=== PATIENT | male | born 1955 | race African-American/Black ===

== ENCOUNTER 2017-08-02 09:30 | Day surgery (SDC) | payer MEDICAID ==
[~2017-08-02 09:30] MED LIST: BUPIVACAINE HCL 0.75% INJ/PF (7.5 MG/1 ML) 10 ML SDV OD PRN; CHONDR SU A NA/HYALUR INTRAOC KIT (SURGICARE) ONE; EPINEPHRINE INJ/PF 1 MG/1 ML AMPULE ONE; KETOROLAC TROMETHAMINE 0.45% 4 DROP/0.4 ML DROPERETTE OD PRN; LIDOCAINE 1% INJ-PF (10 MG/ML) 30 ML SDV ONE; LIDOCAINE 4% INJ/PF (40 MG/ML) 5 ML AMPUL OD PRN
[2017-08-02] MEDS: TETRACAINE HCL 0.5% OPH SOLN 0.6 ML DROPERETTE OD PRN ×4 (10:21→11:02)
[2017-08-02] MEDS: TROPICAMIDE 1% OPH SOLN 3 ML OD PRN ×3 (10:22→10:48)
[2017-08-02] MEDS: CYCLOPENTOLATE 0.2%/PHENYLEPHRINE 1% OPH SOLN 2 ML OD PRN ×3 (10:22→10:48)
[2017-08-02] MEDS: BESIFLOXACIN HCL 0.6% OPH SUSP 5 ML BOTTLE OD PRN ×4 (10:23→11:26)
[2017-08-02] MEDS ORDERED: MIDAZOLAM 2 MG/2 ML INJ ONE ×2 (10:38→10:39)
[2017-08-02] MEDS: TOBRAMYCIN SULFATE/DEXAMETH OPH OINTMENT 3.5 GM ONE ×2 (11:24→11:26)
== END 2017-08-02 12:10 | disposition home or self-care (01) ==
LOC: SC 09:30
PROVIDERS: ATTEND Ophthalmology
DX: H25.11 Age-related nuclear cataract, right eye (principal); F17.210 Nicotine dependence, cigarettes, uncomplicated; E11.9 Type 2 diabetes mellitus without complications; I10 Essential (primary) hypertension; E78.00 Pure hypercholesterolemia, unspecified; Z79.899 Other long term (current) drug therapy; Z79.82 Long term (current) use of aspirin; Z79.84 Long term (current) use of oral hypoglycemic drugs; Z86.73 Personal history of transient ischemic attack (TIA), and cerebral infarction without residual deficits
CPT/HCPCS: 66984; 82962; V2630; J2250; J3490 ×5; J0171; 142

== ENCOUNTER 2017-08-23 06:36 | Day surgery (SDC) | payer MEDICAID ==
[~2017-08-23 06:36] MED LIST changes: -BUPIVACAINE HCL 0.75% INJ/PF (7.5 MG/1 ML) 10 ML SDV OD PRN; -CHONDR SU A NA/HYALUR INTRAOC KIT (SURGICARE) ONE; -EPINEPHRINE INJ/PF 1 MG/1 ML AMPULE ONE; -KETOROLAC TROMETHAMINE 0.45% 4 DROP/0.4 ML DROPERETTE OD PRN; +KETOROLAC TROMETHAMINE 0.45% 4 DROP/0.4 ML DROPERETTE OS PRN; -LIDOCAINE 1% INJ-PF (10 MG/ML) 30 ML SDV ONE; -LIDOCAINE 4% INJ/PF (40 MG/ML) 5 ML AMPUL OD PRN
[2017-08-23] MEDS: BESIFLOXACIN HCL 0.6% OPH SUSP 5 ML BOTTLE OS PRN ×4 (06:58→07:52)
[2017-08-23] MEDS: TROPICAMIDE 1% OPH SOLN 3 ML OS PRN ×3 (06:58→07:18)
[2017-08-23] MEDS: CYCLOPENTOLATE 0.2%/PHENYLEPHRINE 1% OPH SOLN 2 ML OS PRN ×3 (06:58→07:18)
[2017-08-23] MEDS: TETRACAINE HCL 0.5% OPH SOLN 0.6 ML DROPERETTE OS PRN ×3 (06:59→07:33)
[2017-08-23] MEDS ORDERED: EPINEPHRINE INJ/PF 1 MG/1 ML AMPULE ONE (07:05)
[2017-08-23] MEDS ORDERED: LIDOCAINE 1% INJ-PF (10 MG/ML) 30 ML SDV ONE (07:06)
[2017-08-23] MEDS ORDERED: FENTANYL CITRATE INJ/PF 100 MCG/2 ML AMPUL ONE (07:13)
[2017-08-23] MEDS ORDERED: MIDAZOLAM 2 MG/2 ML INJ ONE (07:13)
[2017-08-23] MEDS: CHONDR SU A NA/HYALUR INTRAOC KIT (SURGICARE) ONE ×2 (07:43)
[2017-08-23] MEDS: TOBRAMYCIN SULFATE/DEXAMETH OPH OINTMENT 3.5 GM ONE ×2 (07:52)
== END 2017-08-23 08:32 | disposition home or self-care (01) ==
LOC: SC 06:36
PROVIDERS: ATTEND Ophthalmology
PROC: 08RK3JZ Replacement of Left Lens with Synthetic Substitute, Percutaneous Approach (ICD-10-PCS; principal; 2017-08-23 07:30)
DX: H25.12 Age-related nuclear cataract, left eye (principal); F17.200 Nicotine dependence, unspecified, uncomplicated
CPT/HCPCS: 82962; 66984; V2630; J2250; J3490 ×5; J0171; J3010; 142

== ENCOUNTER 2019-06-18 09:32 | Observation (INO) | payer MEDICAID ==
--- NOTE | 2019-06-18 10:33 | ER Document Report ---
ED Medical Screen (RME) - General Stated Complaint: NAUSEA Time Seen by Provider: 06/18/19 10:25 Primary Care Provider: EDGARDO RAE MD [Primary Care Provider] - Follow up as needed TRAVEL OUTSIDE OF THE [place] 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 Patient states his last CVA was in 2015, he did not have any focal neurological deficit at that time. Patient states he is possibly starting insulin this month the is is not metformin is not controlling his blood sugar. Denies any new medications foods or travel. Denies any fevers chills, abdominal pain, chest pain or shortness of breath. I have greeted and performed a rapid initial assessment of this patient. A comprehensive ED assessment and evaluation of the patient, analysis of test results and completion of the medical decision making process will be conducted by additional ED providers. PHYSICAL EXAMINATION: GENERAL: Well-appearing, well-nourished and in no acute distress. HEAD: Atraumatic, normocephalic. EYES: Pupils equal round extraocular movements intact, conjunctiva are normal. NECK: Normal range of motion CV: s1, s2 regular LUNGS: No respiratory distress Musculoskeletal: Normal range of motion NEUROLOGICAL: Normal speech, in wheelchair orientated to person place and time. No visual deficits appreciated. 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 Bilateral upper extremities equal SKIN: Warm, Dry, normal turgor, no rashes or lesions noted. - Related Data Allergies/Adverse Reactions: No Known Allergies Allergy (Verified 08/23/17 07:03) Past Medical History - Past Medical History Cardiac Medical History: Reports: Hx Hypertension Denies: Hx Heart Attack Pulmonary Medical History: Denies: Hx Asthma Neurological Medical History: Reports: Hx Cerebrovascular Accident - 2015,RT SIDE USES CANE. Denies: Hx Seizures Endocrine Medical History: Reports: Hx Diabetes Mellitus Type 2 GI Medical History: Denies: Hx Hepatitis, Hx Hiatal Hernia, Hx Ulcer Infectious Medical History: Denies: Hx Hepatitis Past Surgical History: Denies: Hx Open Heart Surgery, Hx Pacemaker Physical Exam - Vital signs Vitals: Temp Pulse Resp BP Pulse Ox 98.5 F 75 18 192/88 H 99 06/18/19 09:39 06/18/19 09:39 06/18/19 09:39 06/18/19 09:39 06/18/19 09:39 Course - Vital Signs Vital signs: Temp Pulse Resp BP Pulse Ox 98.5 F 75 18 192/88 H 99 06/18/19 09:39 06/18/19 09:39 06/18/19 09:39 06/18/19 09:39 06/18/19 09:39 Doctor's Discharge - Discharge Referrals: EDGARDO RAE MD [Primary Care Provider] - Follow up as needed
[2019-06-18 11:05] LABS: ABSOLUTE BASOPHILS # (AUTO) 0.1 10^3/uL (0.0-0.2); ABSOLUTE MONOCYTES (AUTO) 0.3 10^3/uL (0.1-1.4); ABSOLUTE NEUT (AUTO) 4.6 10^3/uL (1.7-8.2); BASOPHILS % (AUTO) 1.1 % (0-2); EOSINOPHILS % (AUTO) 0.3 % (0-6); HEMATOCRIT 45.2 % (37.9-51.0); HEMOGLOBIN 15.4 g/dL (13.5-17.0); LYMPHOCYTES % (AUTO) 28.8 % (13-45); MEAN CORPUSCULAR HGB CONC 34.1 g/dL (32.0-36.0); MEAN CORPUSCULAR VOLUME 88 fl (80-97); MONOCYTES % (AUTO) 4.5 % (3-13); PLATELET COUNT 209 10^3/uL (150-450); RED BLOOD COUNT 5.14 10^6/uL (4.35-5.55); RED CELL DISTRIBUTION WIDTH 13.7 % (11.5-14.0); SEGMENTED NEUTROPHILS % (AUTO) 65.3 % (42-78); TOTAL CELLS COUNTED % (AUTO) 100 %; WHITE BLOOD COUNT 7.1 10^3/uL (4.0-10.5)
--- NOTE | 2019-06-18 11:27 | RADIOLOGY REPORT (SQ) ---
EXAM DESCRIPTION: CT HEAD WITHOUT IMAGES COMPLETED DATE/TIME: 06/18/2019 11:14 am REASON FOR STUDY: R leg weakness, nausea, hx of cva, HTN COMPARISON: CT of the head without contrast from 12/25/2015. TECHNIQUE: Axial images acquired through the brain without intravenous contrast. Images reviewed wi th bone, brain and subdural windows. Images stored on PACS. All CT scanners at this facility use dose modulation, iterative reconstruction, and/or weight based d osing when appropriate to reduce radiation dose to as low as reasonably achievable (ALARA). [facility]: Dose Right [facility]: CareDose [facility]: Dose Right [facility]: Teradose 4D [facility]: Your Energy RADIATION DOSE: CT Rad equipment meets quality standard of care and radiation dose reduction techniq ues were employed. CTDIvol: 53.2 mGy. DLP: 1070 mGy-cm. LIMITATIONS: None. FINDINGS: The areas of hypoattenuation within the left basal ganglia and thalamic nucleus could repr esent the sequela of chronic infarcts. The confluent areas of hypoattenuation throughout the suprate ntorial periventricular and subcortical white matter are unchanged and could represent the sequela of chronic microvascular ischemia. There is no acute intracranial hemorrhage, vascular territorial inf arct, extra-axial fluid collection, mass effect or midline shift. The garcia-white matter differentiat ion is preserved. There is no effacement of the cerebral sulci or basal subarachnoid cisterns. The c aliber the ventricles is concordant with the degree of sulcation and unchanged from 12/25/2015. There is a chronic depressed fracture of the medial wall of the right orbit. There is no paranasal sinus air-fluid level. The calvarium is intact. IMPRESSION: Sequela of chronic ischemia without a superimposed acute intracranial abnormality. If t here is persistent concern for an acute CVA then correlation with an MRI is recommended. EVIDENCE OF ACUTE STROKE: NO. COMMENT: Quality ID # [id number]: Final reports with documentation of one or more dose reduction techniques (e.g., Automated exposure control, adjustment of the mA and/or kV according to patient size, use of iterative reconstruction technique) TECHNICAL DOCUMENTATION: JOB ID: [id number] 2010 [employer]- All Rights Reserved Reading location - IP/workstation name: [email or web address]
--- NOTE | 2019-06-18 11:29 | RADIOLOGY REPORT (SQ) ---
EXAM DESCRIPTION: CHEST SINGLE VIEW IMAGES COMPLETED DATE/TIME: 06/18/2019 11:19 am REASON FOR STUDY: weakness, nausea COMPARISON: PA and lateral views of the chest from 12/25/2015. EXAM PARAMETERS: NUMBER OF VIEWS: One view. TECHNIQUE: An AP view of the chest was obtained. RADIATION DOSE: NA LIMITATIONS: None. FINDINGS: LUNGS AND PLEURA: No consolidation, pleural effusion or pneumothorax. MEDIASTINUM AND HILAR STRUCTURES: No mediastinal or hilar contour abnormality. HEART AND VASCULAR STRUCTURES: The cardiac silhouette and pulmonary vasculature are within normal lockhart its. BONES: No acute findings. HARDWARE: None in the chest. OTHER: No other finding. IMPRESSION: Low inspiratory lung volumes without a superimposed acute cardiopulmonary process. TECHNICAL DOCUMENTATION: JOB ID: [id number] 2010 [employer]- All Rights Reserved Reading location - IP/workstation name: [email or web address]
[2019-06-18 11:32] LABS: ALBUMIN 4.7 g/dL (3.5-5.0); ALKALINE PHOSPHATASE 173 U/L (38-126); ANION GAP 7 (5-19); ASPARTATE AMINO TRANSFERASE 21 U/L (17-59); BILIRUBIN,TOTAL 0.8 mg/dL (0.2-1.3); BLOOD UREA NITROGEN 11 mg/dL (7-20); CALCIUM 9.4 mg/dL (8.4-10.2); CARBON DIOXIDE 33 mmol/L (22-30); CHLORIDE 100 mmol/L (98-107); GLUCOSE 211 mg/dL (75-110); TOTAL PROTEIN 8.4 g/dL (6.3-8.2)
[2019-06-18] MEDS ORDERED: POTASSIUM CHLORIDE 10 MEQ TABLET.ER PO ONE ×2 (11:39→17:08)
--- NOTE | 2019-06-18 11:42 | ER Document Report ---
ED Dizziness/Weakness - General Chief Complaint: General Weakness Stated Complaint: NAUSEA Time Seen by Provider: 06/18/19 10:25 Primary Care Provider: EDGARDO RAE MD [NO LOCAL MD] - Follow up as needed Mode of Arrival: Ambulatory Information source: Patient TRAVEL OUTSIDE OF THE [place] IN LAST 30 DAYS: No - HPI Notes: Patient presents complaining of generalized weakness. He states that started approximately 2 days ago while sitting outside. He noticed that he was having more "stiffness" in his right leg and that it did not appear to function properly. He states approximately 3 years ago he had a stroke which is left his right side both arm and leg with some weakness. He states he feels that the leg is now more weak than usual. He states he has some nausea but he has had no vomiting or problems with stools. No problems with urination. No cough cold or congestion. No exposures to coronavirus. Patient denies any chest pain or shortness of breath. He has no pain. His symptoms have been constant. They are worse with movement and better with rest. There is no known radiation symptoms. They are mild to moderate in intensity. - Related Data Allergies/Adverse Reactions: No Known Allergies Allergy (Verified 08/23/17 07:03) Past Medical History - General Information source: Patient - Social History Smoking Status: Current Every Day Smoker Frequency of alcohol use: Occasional Drug Abuse: None Family History: DM, Hyperlipidemia, Hypertension Patient has homicidal ideation: No - Past Medical History Cardiac Medical History: Reports: Hx Hypertension Denies: Hx Heart Attack Pulmonary Medical History: Denies: Hx Asthma Neurological Medical History: Reports: Hx Cerebrovascular Accident - 2015,RT SIDE USES CANE. Denies: Hx Seizures Endocrine Medical History: Reports: Hx Diabetes Mellitus Type 2 GI Medical History: Denies: Hx Hepatitis, Hx Hiatal Hernia, Hx Ulcer Infectious Medical History: Denies: Hx Hepatitis Past Surgical History: Denies: Hx Open Heart Surgery, Hx Pacemaker Review of Systems - Review of Systems Constitutional: Malaise, Weakness. denies: Chills, Fever Cardiovascular: denies: Chest pain, Palpitations Respiratory: denies: Cough, Short of breath -: Yes All other systems reviewed and negative Physical Exam - Vital signs Vitals: Temp Pulse Resp BP Pulse Ox 98.5 F 75 18 192/88 H 99 06/18/19 09:39 06/18/19 09:39 06/18/19 09:39 06/18/19 09:39 06/18/19 09:39 Interpretation: Hypertensive - General General appearance: Appears well, Alert - HEENT Head: Normocephalic, Atraumatic Eyes: Normal Pupils: PERRL - Respiratory Respiratory status: No respiratory distress Chest status: Nontender Breath sounds: Normal Chest palpation: Normal - Cardiovascular Rhythm: Regular Heart sounds: Normal auscultation Murmur: No - Abdominal Inspection: Normal Distension: No distension Bowel sounds: Normal Tenderness: Nontender Organomegaly: No organomegaly - Back Back: Normal, Nontender - Extremities General upper extremity: Normal inspection, Nontender, Normal color, Normal ROM, Normal temperature General lower extremity: Normal inspection, Nontender, Normal color, Normal ROM, Normal temperature, Normal weight bearing. No: Kristian's sign - Neurological Neuro grossly intact: Yes Cognition: Normal Orientation: AAOx4 Blanche Coma Scale Eye Opening: Spontaneous Blanche Coma Scale Verbal: Oriented Hope Coma Scale Motor: Obeys Commands Blanche Coma Scale Total: 15 Speech: Normal Cranial nerves: Normal Cerebellar coordination: Normal Additional motor exam normals: No: Pronator drift Sensory: Normal - Psychological Associated symptoms: Normal affect, Normal mood - Skin Skin Temperature: Warm Skin Moisture: Dry Skin Color: Normal Course - Re-evaluation Re-evalutation: 06/18/19 14:16 Patient presents stating he feels weak in general as well as nauseated and also feels that his right leg is not as strong as normal. Patient does have a new CVA based upon MRI. His potassium was also low which is been replaced here. Patient will be admitted for further evaluation and work-up. - Vital Signs Vital signs: Temp Pulse Resp BP Pulse Ox 98.5 F 75 18 178/80 H 99 06/18/19 10:25 06/18/19 09:39 06/18/19 09:39 06/18/19 11:36 06/18/19 09:39 - Laboratory Result Diagrams: 06/18/19 10:50 06/18/19 10:50 Laboratory results interpreted by me: 06/18/19 06/18/19 06/18/19 10:49 10:50 12:40 Potassium 3.0 L* Carbon Dioxide 33 H Glucose 211 H POC Glucose 189 H Alkaline Phosphatase 173 H Total Protein 8.4 H Urine Protein 100 H Urine Glucose (UA) >=500 H Urine Ketones 20 H Urine Urobilinogen 2.0 H Ur Leukocyte Esterase TRACE H - Diagnostic Test Radiology reviewed: Image reviewed, Reports reviewed - EKG Interpretation by Me EKG shows normal: Sinus rhythm Rate: Normal - 73 Rhythm: NSR [place]/QRS: No: Right axis deviation, Left axis deviation Voltage: Consistant with LVH Discharge - Discharge Clinical Impression: CVA (cerebral vascular accident) Qualifiers: CVA mechanism: embolism Precerebral and cerebral artery: posterior cerebral artery Laterality of affected vessel: right Qualified Code(s): I63.431 - Cerebral infarction due to embolism of right posterior cerebral artery Condition: Serious Disposition: ADMITTED INPATIENT Unit Admitted: IMCU Referrals: EDGARDO RAE MD [NO LOCAL MD] - Follow up as needed
--- NOTE | 2019-06-18 12:54 | EKG REPORT ---
SEVERITY:- ABNORMAL ECG - SINUS RHYTHM PROBABLE LEFT ATRIAL ABNORMALITY LEFT VENTRICULAR HYPERTROPHY : Confirmed by: Westley Padilla MD 18-Jun-2019 12:53:25
[2019-06-18 13:05] LABS: APPEARANCE,URINE SLIGHTLY-CLOUDY; BILIRUBIN,URINE NEGATIVE (NEGATIVE); COLOR,URINE YELLOW; GLUCOSE, URINE >=500 mg/dL (NEGATIVE); KETONES,URINE 20 mg/dL (NEGATIVE); LEUKOCYTE ESTERASE,URINE TRACE (NEGATIVE); NITRITE,URINE NEGATIVE (NEGATIVE); PROTEIN,URINE 100 mg/dL (NEGATIVE); URINE SPECIFIC GRAVITY 1.018
--- NOTE | 2019-06-18 13:07 | RADIOLOGY REPORT (SQ) ---
EXAM DESCRIPTION: MRI HEAD WITHOUT IMAGES COMPLETED DATE/TIME: 06/18/2019 12:51 pm REASON FOR STUDY: right sided weakness COMPARISON: MRI of the brain without contrast from 12/25/2015. TECHNIQUE: Multiplanar imaging includes non-contrasted T1, T2, FLAIR, and diffusion with ADC map seq uences. Images stored on PACS. LIMITATIONS: None. FINDINGS: There is a focus of restricted diffusion within the right inferior cerebellar peduncle. The confluent and focal areas of high T2/FLAIR signal in the left basal ganglia and throughout the stokes pratentorial periventricular and subcortical white matter have increased compared to the MRI from 12/2015 and could represent the sequela of chronic ischemia. There are punctate foci of susceptibility artifact within the white substance of the cerebellum. There is no acute intracranial hemorrhage, extra-axial fluid collection, mass, mass effect or midline shift. The garcia-white matter differentiation is preserved. There is no effacement of the cerebral sulci or basal subarachnoid cisterns. The caliber the ventricles is concordant with the degree of sul cation. The intracranial vascular flow voids are preserved. The sella turcica, craniocervical junction, and corpus callosum are normal in appearance. There is chronic partial opacification of the right mastoid air cells. IMPRESSION: 1. Acute punctate infarct within the right inferior cerebellar peduncle in the distribut ion of the posterior inferior cerebellar artery. 2. Sequela of chronic ischemia as detailed above. EVIDENCE OF ACUTE STROKE: YES. RIGHT PICA TECHNICAL DOCUMENTATION: JOB ID: [id number] 2010 [employer]- All Rights Reserved Reading location - IP/workstation name: [email or web address]
--- NOTE | 2019-06-18 13:10 | RADIOLOGY REPORT (SQ) ---
EXAM DESCRIPTION: MRA HEAD WITHOUT IMAGES COMPLETED DATE/TIME: 06/18/2019 12:51 pm REASON FOR STUDY: CVA COMPARISON: MRI of the brain without contrast from 06/18/2019. TECHNIQUE: Axial 3-D [id number] acquisition imaging performed through the brain in the area of t he upper [place] of [place]. Images reformatted using 3-D MIPS. LIMITATIONS: None. FINDINGS: SOURCE IMAGES: No abnormality. 3-D MIP: No aneurysm, occlusion or high-grade stenosis. OTHER: No other finding. IMPRESSION: No aneurysm, occlusion or high-grade stenosis of the intracranial arterial vasculature. TECHNICAL DOCUMENTATION: JOB ID: [id number] 2010 [employer]- All Rights Reserved Reading location - IP/workstation name: [email or web address]
--- NOTE | 2019-06-18 14:30 | ER Document Report ---
ED NIH Stroke Scale - NIH Stroke Scale When completed:: Before Alteplase *: 1. NIH scale should be completed with appropriate accompanying assessment tools. *: 2. The NIH should reflect what the patient is capable of doing and should not be coached by the clinician. 1a. Level of Consciousness: 0=Alert;keenly responsive -: 1=Drowsy -: 2=Obtunded -: 3=Coma/unresponsive or reflex to noxious stimuli. 1a. Responses: 0 1b. Orientation Questions: a. What month is it? -: b. How old are you? -: 0=Answers both questions correctly. -: 1=Answers one question correctly or patient is intubated or has orotracheal trauma. -: 2=Answers neither question correctly. 1b. Responses: 0 1c. Response to commands: a. Open and close eyes? -: b. [employer] and release hand? -: Credit is given despite weakness. Demonstration of task is permitted. Substitute command if hands cannot be used. -: 0=Performs both tasks correctly -: 1=Performs one task correctly -: 2=Performs neither task correctly 1c. Responses: 0 2. Gaze: Establish eye contact and instruct patient to "Follow my finger" -: 0=Normal -: 1=Partial gaze palsy. Gaze is abnormal in one or both eyes, but where forced deviation or total gaze paresis is not present. -: 2=Forced deviation or total gaze paresis. 2. Responses: 0 3. Visual [place]: Sees fingers in all four quadrants. -: 0=No visual loss. -: 1=Partial hemianopsia. -: 2=Complete hemianopsia. -: 3=Bilateral hemianopsia (including Cortical blindness) 3. Responses: 0 4. Facial Movement: Instruct patient to: -: a. Show me your teeth -: b. Raise your eyebrows -: c. Close your eyes -: d. Smile -: 0=Normal symmetrical movement -: 1=Minor paralysis (flattened nasolabial fold, asymmetry on smiling). -: 2=Partial paralysis (total or near total paralysis of lower face). -: 3=Complete paralysis of upper and lower face 4. Responses: 0 5. Motor functions (left arm): Alternate sides and extend each arm with palms down (90 degrees if sitting or 45 degrees for supine). -: 0=No drift;limb holds for full 10 seconds. -: 1=Drift; limb holds but drifts down before full 10 seconds, but does not hit bed. -: 2=Some effort against gravity; limb cannot get to or maintain position. -: 3=No effort against gravity; limb falls. -: 4=No movement. -: UN=Amputation, joint fusion, explain in comments. 5. Responses (left arm): 0 5. Motor Functions (right arm): Alternate sides and extend each arm with palms down (90 degrees if sitting or 45 degrees for supine). -: 0=No drift;limb holds for full 10 seconds. -: 1=Drift; limb holds but drifts down before full 10 seconds, but does not hit bed. -: 2=Some effort against gravity; limb cannot get to or maintain position. -: 3=No effort against gravity; limb falls. -: 4=No movement. -: UN=Amputation, joint fusion, explain in comments. 5. Responses (right arm): 0 6. Motor Functions (left leg): With patient lying supine, alternate sides and extend each leg (30 degrees always while supine). -: 0=No drift, leg holds position for full 5 seconds -: 1=Drift; leg falls before full 5 seconds but does not hit bed. -: 2=Some effort against gravity, leg falls to bed but some effort against gravity. -: 3=No effort against gravity, leg falls to bed immediately. -: 4=No movement. -: UN=Amputation, joint fusion; explain in comments. 6. Responses (left leg): 0 6. Motor Functions (right leg): With patient lying supine, alternate sides and extend each leg (30 degrees always while supine). -: 0=No drift, leg holds position for full 5 seconds -: 1=Drift; leg falls before full 5 seconds but does not hit bed. -: 2=Some effort against gravity, leg falls to bed but some effort against gravity. -: 3=No effort against gravity, leg falls to bed immediately. -: 4=No movement. -: UN=Amputation, joint fusion; explain in comments. 6. Responses (right leg): 1 7. Limb Ataxia: With eyes open instruct patient to: -: a. "Touch your finger to your nose". -: b. "Touch your heel to your garcia" -: 0=Absent -: 1=Present in one limb. -: 2=Present in two limbs. -: UN=Amputation or joint fusion; explain in comments. 7. Responses: 1 8. Sensory: Test sensation using pinprick or noxious stimuli. Test as many body parts as possible. -: 0=Normal;no sensory loss -: 1=Mile to moderate sensory loss (patient feels pin prick but is less sharp on affected side). -: 2=Severe or total sensory loss. 8. Responses: 0 9. Best Language: Instruct patient to: -: a. "Describe what you see in this picture." -: b. "Name the items in this picture." -: c. "Read these sentences." -: 0=No aphasia, normal -: 1=Mild to moderate aphasia. -: 2=Severe aphasia -: 3=Mute, global aphasia, no usable speech or auditory comprehension. 9. Responses: 0 10. Articulation, Dysarthia: Instruct patient to: -: "Read these words" or "Repeat these words" -: 0=Normal -: 1=Mild to moderate; patient may slur some words but can be understood without difficulty. -: 2=Severe; patients speech so slurred as to be unintelligible in the absence of dysphasia. -: UN=Intubated or other physical barrier, explain in comments. 10. Responses: 0 11. Extinction or inattention: 0=No abnormality -: 1= Visual, tactile, auditory, spatial, or personal inattention or extinction to bilateral simulation in one or the sensory modalities. -: 2=Profound brittany-inattention or brittany-inattention to more than one modality; does not recognize own hand. 11. Responses: 0 Total Score: 2
[2019-06-18] MEDS ORDERED: ONDANSETRON HCL INJ/PF 4 MG/2 ML SDV IV PRN (15:12)
[2019-06-18] MEDS ORDERED: ACETAMINOPHEN 325 MG TABLET PO PRN (15:12)
--- NOTE | 2019-06-18 15:31 | PDOC H&P ---
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 Patient states his symptoms started on Monday while he was drinking a beer. States that he felt nauseous. Also stated that he started to notice increased weakness in his right leg making it difficult for him to walk. Try to sleep it off but his symptoms persisted and he decided to come in today for evaluation. Denies any other weaknesses. States that he has been in physical therapy since his last stroke which was years ago but later quit. Denies any visual changes. Admits to taking his blood pressure medications today and states that he is compliant. Last saw his PCP about 3 weeks ago. Past Medical History Cardiac Medical History: Reports: Hypertension Denies: Myocardial Infarction Pulmonary Medical History: Denies: Asthma Neurological Medical History: Denies: Seizures Endocrine Medical History: Reports: Diabetes Mellitus Type 2 GI Medical History: Denies: Hepatitis, Hiatal Hernia Hematology: Denies: Anemia, Sickle Cell Disease Past Surgical History Past Surgical History: Denies: Pacemaker Social History Smoking Status: Current Every Day Smoker Frequency of Alcohol Use: Occasional Hx Recreational Drug Use: Yes Drugs: Cocaine, Marijuana Hx Prescription Drug Abuse: No - Advance Directive Resuscitation Status: Full Code Family History Family History: DM, Hyperlipidemia, Hypertension Parental Family History Reviewed: Yes Children Family History Reviewed: NA Sibling(s) Family History Reviewed.: Yes Medication/Allergy Home Medications: Amlodipine Besylate [Norvasc 5 mg Tablet] 5 mg PO BID #60 tablet 12/30/15 Atorvastatin Calcium [Lipitor 40 mg Tablet] 40 mg PO QHS #30 tablet 12/30/15 Hydralazine HCl [Apresoline 50 mg Tablet] 100 mg PO Q8 #90 tablet 12/30/15 Losartan Potassium [Cozaar 25 mg Tablet] 50 mg PO Q12 #60 tablet 12/30/15 Clonidine [Catapres-TTS 2 (0.2 mg/day) TD Patch] 1 patch TD ASDIR 07/28/17 Metformin HCl 500 mg PO BID 07/28/17 Sildenafil Citrate [Viagra] 50 mg PO ASDIR PRN 07/28/17 Allergies/Adverse Reactions: No Known Allergies Allergy (Verified 08/23/17 07:03) Review of Systems Constitutional: ABSENT: chills, fever(s), headache(s) Eyes: ABSENT: visual disturbances Ears: ABSENT: hearing changes Nose, Mouth, and Throat: ABSENT: headache(s), vertigo Cardiovascular: ABSENT: chest pain Respiratory: ABSENT: cough, dyspnea Gastrointestinal: PRESENT: nausea. ABSENT: abdominal pain, diarrhea, vomiting Genitourinary: ABSENT: difficulty urinating, dysuria Integumentary: PRESENT: diaphoresis - on monday but not today Neurological: ABSENT: confusion, convulsions, dizziness, vertigo Psychiatric: ABSENT: anxiety Endocrine: PRESENT: polyuria Hematologic/Lymphatic: ABSENT: easy bleeding Physical Exam Vital Signs: Temp Pulse Resp BP Pulse Ox 98.5 F 75 18 178/80 H 99 06/18/19 10:25 06/18/19 09:39 06/18/19 09:39 06/18/19 11:36 06/18/19 09:39 Intake & Output 06/17/19 06/18/19 06/19/19 06:59 06:59 06:59 Weight 84.5 kg General appearance: PRESENT: no acute distress, cooperative Head exam: PRESENT: normocephalic Eye exam: PRESENT: EOMI, PERRLA. ABSENT: scleral icterus Mouth exam: PRESENT: neck supple Neck exam: ABSENT: JVD Respiratory exam: PRESENT: clear to auscultation matthew, unlabored. ABSENT: tachypnea, wheezes Cardiovascular exam: PRESENT: RRR, +S1, +S2, systolic murmur. ABSENT: irregular rhythm, tachycardia GI/Abdominal exam: PRESENT: normal bowel sounds, soft. ABSENT: rebound, rigid, tenderness Extremities exam: ABSENT: pedal edema Neurological exam: PRESENT: alert, awake, oriented to person, oriented to place, oriented to time, oriented to situation, reflexes normal, CN II-XII grossly intact, motor sensory deficit - RLE 4/5 5/5 in all other extremities. ABSENT: ataxia, aphasic Psychiatric exam: ABSENT: agitated, anxious Focused psych exam: ABSENT: pressured speech Skin exam: ABSENT: jaundice Results Laboratory Results: 06/18/19 10:50 06/18/19 10:50 06/18/19 06/18/19 06/18/19 10:50 10:50 12:40 WBC 7.1 RBC 5.14 Hgb 15.4 Hct 45.2 MCV 88 MCH 30.0 MCHC 34.1 RDW 13.7 Plt Count 209 Seg Neutrophils % 65.3 Sodium 140.1 Potassium 3.0 L* Chloride 100 Carbon Dioxide 33 H Anion Gap 7 BUN 11 Creatinine 0.84 Est GFR ( Amer) > 60 Glucose 211 H Calcium 9.4 Total Bilirubin 0.8 AST 21 Alkaline Phosphatase 173 H Total Protein 8.4 H Albumin 4.7 Urine Color YELLOW Urine Appearance SLIGHTLY-CLOUDY Urine pH 6.0 Ur Specific [place] 1.018 Urine Protein 100 H Urine Glucose (UA) >=500 H Urine Ketones 20 H Urine Blood NEGATIVE Urine Nitrite NEGATIVE Ur Leukocyte Esterase TRACE H Urine WBC (Auto) 11 Urine RBC (Auto) 2 06/18/19 10:50 Troponin I < 0.012 Impressions: Brain MRI with MRA 06/18/19 00:00 IMPRESSION: No aneurysm, occlusion or high-grade stenosis of the intracranial arterial vasculature. Chest X-Ray 06/18/19 10:34 IMPRESSION: Low inspiratory lung volumes without a superimposed acute cardiopulmonary process. Head CT 06/18/19 10:34 IMPRESSION: Sequela of chronic ischemia without a superimposed acute intracranial abnormality. If there is persistent concern for an acute CVA then correlation with an MRI is recommended. EVIDENCE OF ACUTE STROKE: NO. Head MRI 06/18/19 11:39 IMPRESSION: 1. Acute punctate infarct within the right inferior cerebellar peduncle in the distribution of the posterior inferior cerebellar artery. 2. Sequela of chronic ischemia as detailed above. EVIDENCE OF ACUTE STROKE: YES. RIGHT PICA Assessment and Plan - Diagnosis (1) Acute ischemic stroke Is this a current diagnosis for this admission?: Yes Plan: Predominant symptom was nausea. Also increased weakness in his right lower extremity (initially weakened by prior CVA). Onset Monday. [facility] of 1-2 Brain MRI revealing acute punctate infarct within right inferior cerebellar peduncle. No need for permissive hypertension at this point as patient's onset was 2 days ago. Will monitor for 24 hours on telemetry. CTA shows no hemodynamic stenosis. Check carotid ultrasound and echocardiogram. Check lipid panel. Continue aspirin. Plavix for 21 days. Increase atorvastatin to 80 mg nightly. (2) Uncontrolled hypertension Is this a current diagnosis for this admission?: Yes Plan: Poorly controlled. Likely played a role in patient's stroke. Will need more optimal control. Continue amlodipine 10 mg. Add losartan 25 every 12. (3) Type 2 diabetes mellitus Is this a current diagnosis for this admission?: Yes Plan: Resume metformin. Sliding scale insulin. ADA. Check A1c. (4) Tobacco abuse Is this a current diagnosis for this admission?: Yes Plan: Receive counseling on tobacco cessation. - Time Time Spent with patient: 35 or more minutes
[2019-06-18] MEDS ORDERED: DEXTROSE 40% GEL 15 GM TUBE PO PRN ×2 (15:34)
[2019-06-18] MEDS ORDERED: GLUCAGON,HUMAN RECOMB 1 MG INJ IM PRN (15:34)
[2019-06-18] MEDS ORDERED: DEXTROSE 50%-WATER 25 GM/50 ML DISP.SYRIN IV PRN ×2 (15:34)
[2019-06-18] MEDS ORDERED: LOSARTAN POTASSIUM 25 MG TABLET PO SCH (15:45)
[2019-06-18] MEDS ORDERED: LABETALOL HCL INJ 20 MG/4 ML DISP.SYRIN IV PRN (16:18)
[2019-06-18] MEDS: INSULIN LISPRO 100 UNIT/ML 3 ML VIAL SUBCUT SCH ×2 (16:34→21:37)
[2019-06-18] MEDS: LOSARTAN POTASSIUM 25 MG TABLET PO SCH (16:36)
[2019-06-18] MEDS: METFORMIN HCL 500 MG TABLET PO SCH (16:36)
--- NOTE | 2019-06-18 18:34 | RADIOLOGY REPORT (SQ) ---
EXAM DESCRIPTION: CAROTID DOPPLER IMAGES COMPLETED DATE/TIME: 06/18/2019 6:23 pm REASON FOR STUDY: cva workup COMPARISON: Carotid Doppler 12/25/2015 CT brain 06/18/2019 MRI brain and MRA exam [facility] [place] 06/18/2019 TECHNIQUE: Grayscale ultrasound, Doppler velocity and spectra, and color Doppler images acquired of the extra-cranial carotid and vertebral arteries. Images stored on PACS. LIMITATIONS: None. FINDINGS: RIGHT CAROTID CCA Velocities: Within normal limits. ICA Velocities Peak systolic 0.5 m/s. End diastolic 0.1 m/s. Proximal ICA/CCA peak systolic ratio normal. Spectra normal. No significant plaque. LEFT CAROTID CCA Velocities: Within normal limits. ICA Velocities Peak systolic 0.47 m/s. End diastolic 0.14 m/s. Proximal ICA/CCA peak systolic ratio normal. Spectra normal. No significant plaque. VERTEBRAL ARTERIES: Antegrade flow. Normal waveforms. SUBCLAVIAN ARTERIES: Not evaluated OTHER: No other significant finding. IMPRESSION: NO HEMODYNAMICALLY SIGNIFICANT STENOSIS. COMMENT: Quality ID #[id number]: Velocity criteria are extrapolated from the diameter data as defined by t he Society of Radiologists in Ultrasound Consensus Conference. Radiology 2003: 229; 340-346. TECHNICAL DOCUMENTATION: JOB ID: [id number] 2010 [employer]- All Rights Reserved Reading location - IP/workstation name: [email or web address]
[2019-06-18] MEDS ORDERED: ATORVASTATIN CALCIUM 80 MG TABLET PO SCH (22:00)
[2019-06-18] MEDS ORDERED: INSULIN GLARGINE,HUM.REC.ANLOG 1,000 UNIT/10 ML VIAL SUBCUT SCH (22:00)
[2019-06-19] MEDS: LOSARTAN POTASSIUM 25 MG TABLET PO SCH (05:20)
[2019-06-19 06:12] LABS: HEMATOCRIT 42.3 % (37.9-51.0); HEMOGLOBIN 14.5 g/dL (13.5-17.0); MEAN CORPUSCULAR HEMOGLOBIN 30.2 pg (27.0-33.4); MEAN CORPUSCULAR HGB CONC 34.3 g/dL (32.0-36.0); MEAN CORPUSCULAR VOLUME 88 fl (80-97); PLATELET COUNT 190 10^3/uL (150-450); RED CELL DISTRIBUTION WIDTH 13.5 % (11.5-14.0)
[2019-06-19 06:24] LABS: INTERNATIONAL RATION (INR) 0.94; PROTHROMBIN TIME 12.5 SEC (11.4-15.4)
[2019-06-19 06:32] LABS: ANION GAP 7 (5-19); BLOOD UREA NITROGEN 15 mg/dL (7-20); CALCIUM 9.2 mg/dL (8.4-10.2); CARBON DIOXIDE 27 mmol/L (22-30); CHLORIDE 104 mmol/L (98-107); CHOLESTEROL 153.64 mg/dL (0-200); GLUCOSE 134 mg/dL (75-110); POTASSIUM 3.2 mmol/L (3.6-5.0); TRIGLYCERIDES 145 mg/dL (<150)
[2019-06-19 06:42] LABS: DIRECT LDL 91 mg/dL (<100)
--- NOTE | 2019-06-19 06:56 | EKG REPORT ---
SEVERITY:- ABNORMAL ECG - SINUS RHYTHM LVH WITH SECONDARY REPOLARIZATION ABNORMALITY ANTERIOR ST ELEVATION, PROBABLY DUE TO LVH : Confirmed by: Westley Padilla MD 19-Jun-2019 06:55:40
[2019-06-19] MEDS ORDERED: POTASSIUM CHLORIDE 10 MEQ TABLET.ER PO ONE ×3 (07:30→11:00)
[2019-06-19] MEDS ORDERED: ENOXAPARIN SODIUM INJ 40 MG/0.4 ML DISP.SYRIN SUBCUT SCH (10:00)
[2019-06-19] MEDS ORDERED: ASPIRIN 81 MG TABLET, ENT COATED PO SCH (10:00)
[2019-06-19] MEDS ORDERED: CLOPIDOGREL BISULFATE 75 MG TABLET PO SCH (10:00)
[2019-06-19] MEDS ORDERED: AMLODIPINE BESYLATE 10 MG TABLET PO SCH (10:00)
[2019-06-19] MEDS: METFORMIN HCL 500 MG TABLET PO SCH (10:49)
[2019-06-19] MEDS: INSULIN LISPRO 100 UNIT/ML 3 ML VIAL SUBCUT SCH (10:50)
--- NOTE | 2019-06-19 11:44 | PDOC DISCHARGE SUMMARY ---
Impression - Admit/DC Date/PCP Admission Date/Primary Care Provider: 06/18/19 14:32 EL HERNÁNDEZ Discharge Date: 06/19/19 - Discharge Diagnosis (1) Acute ischemic stroke Is this a current diagnosis for this admission?: Yes (2) Uncontrolled hypertension Is this a current diagnosis for this admission?: Yes (3) Type 2 diabetes mellitus Is this a current diagnosis for this admission?: Yes (4) Tobacco abuse Is this a current diagnosis for this admission?: Yes - Additional Information Resuscitation Status: Full Code Discharge Diet: Diabetic Referrals: EDGARDO RAE MD [NO LOCAL MD] - Prescriptions: Losartan Potassium [Cozaar 25 mg Tablet] 25 mg PO Q12 #60 tablet Atorvastatin Calcium [Lipitor 80 mg Tablet] 80 mg PO QHS #30 tablet Metformin HCl [Metformin HCl ER] 1,000 mg PO BID 30 Days Amlodipine Besylate [Norvasc 10 mg Tablet] 10 mg PO DAILY #30 Clopidogrel Bisulfate [Plavix 75 mg Tablet] 75 mg PO DAILY 20 Days #20 tablet Home Medications: Aspirin [Ecotrin 81 mg EC Tablet] 81 mg PO DAILY 06/18/19 Insulin Glargine,Hum.rec.anlog [Lantus Insulin 100 Unit/mL Insulin Pen] 20 unit SQ QHS 06/18/19 Amlodipine Besylate [Norvasc 10 mg Tablet] 10 mg PO DAILY #30 06/19/19 Atorvastatin Calcium [Lipitor 80 mg Tablet] 80 mg PO QHS #30 tablet 06/19/19 Clopidogrel Bisulfate [Plavix 75 mg Tablet] 75 mg PO DAILY 20 Days #20 tablet 06/19/19 Losartan Potassium [Cozaar 25 mg Tablet] 25 mg PO Q12 #60 tablet 06/19/19 Metformin HCl [Metformin HCl ER] 1,000 mg PO BID 30 Days 06/19/19 History of Present Illiness History of Present Illness: SISI HYMAN is a 63 year old male with a history of diabetes mellitus type 2, 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 Patient states his symptoms started on Monday while he was drinking a beer. States that he felt nauseous. Also stated that he started to notice increased weakness in his right leg making it difficult for him to walk. Try to sleep it off but his symptoms persisted and he decided to come in today for evaluation. Denies any other weaknesses. States that he has been in physical therapy since his last stroke which was years ago but later quit. Denies any visual changes. Admits to taking his blood pressure medications today and states that he is compliant. Last saw his PCP about 3 weeks ago. Hospital Course Hospital Course: Patient was admitted for evaluation of acute ischemic stroke. MRI of the brain confirmed acute stroke involving the right cerebellar peduncle. Likely responsible for patient's nausea and malaise and uncertain if may have contributed to patient's worsening right leg weakness which has been present since patient's prior stroke. Work-up was performed which included MRA of the brain which showed patent intracranial arteries, carotid Doppler which showed no evidence of hemodynamic significant stenosis, echocardiogram. Lipid panel was also performed. Hemoglobin A1c was over 9. Patient states that he has been ordered for Lantus but does not take the Lantus because he does not want to. As such I have increased his metformin dose from 500 to 1000 mg twice daily. Atorvastatin has been increased to 80 mg nightly. Patient has had poorly controlled hypertension on presentation and as such, losartan has been added to his regimen of amlodipine. Patient is to continue lifelong aspirin and Plavix for 21 days. Telemetry was reviewed and showed no evidence of atrial fibrillation since admission. Patient has remained stable and has worked well with physical therapy and will be set up for home PT and Occupational Therapy. Patient also advised on smoking cessation. Physical Exam Vital Signs: Temp Pulse Resp BP Pulse Ox 98.1 F 71 18 153/78 H 95 06/19/19 07:50 06/19/19 07:50 06/19/19 07:50 06/19/19 07:50 06/19/19 07:50 Intake & Output 06/18/19 06/19/19 06/20/19 06:59 06:59 06:59 Intake Total 510 Balance 510 Weight 84 kg General appearance: PRESENT: no acute distress, cooperative Neurological exam: PRESENT: alert, awake Results Laboratory Results: WBC 7.0 10^3/uL (4.0-10.5) 06/19/19 05:45 RBC 4.80 10^6/uL (4.35-5.55) 06/19/19 05:45 Hgb 14.5 g/dL (13.5-17.0) 06/19/19 05:45 Hct 42.3 % (37.9-51.0) 06/19/19 05:45 MCV 88 fl (80-97) 06/19/19 05:45 MCH 30.2 pg (27.0-33.4) 06/19/19 05:45 MCHC 34.3 g/dL (32.0-36.0) 06/19/19 05:45 RDW 13.5 % (11.5-14.0) 06/19/19 05:45 Plt Count 190 10^3/uL (150-450) 06/19/19 05:45 Lymph % (Auto) 28.8 % (13-45) 06/18/19 10:50 [place] % (Auto) 4.5 % (3-13) 06/18/19 10:50 Eos % (Auto) 0.3 % (0-6) 06/18/19 10:50 Baso % (Auto) 1.1 % (0-2) 06/18/19 10:50 Absolute Neuts (auto) 4.6 10^3/uL (1.7-8.2) 06/18/19 10:50 Absolute Lymphs (auto) 2.0 10^3/uL (0.5-4.7) 06/18/19 10:50 Absolute Monos (auto) 0.3 10^3/uL (0.1-1.4) 06/18/19 10:50 Absolute Eos (auto) 0.0 10^3/uL (0.0-0.6) 06/18/19 10:50 Absolute Basos (auto) 0.1 10^3/uL (0.0-0.2) 06/18/19 10:50 Seg Neutrophils % 65.3 % (42-78) 06/18/19 10:50 PT 12.5 SEC (11.4-15.4) 06/19/19 05:45 INR 0.94 06/19/19 05:45 APTT 31.0 SEC (23.5-35.8) 06/19/19 05:45 Sodium 138.2 mmol/L (137-145) 06/19/19 05:45 Potassium 3.2 mmol/L (3.6-5.0) L 06/19/19 05:45 Chloride 104 mmol/L (98-107) 06/19/19 05:45 Carbon Dioxide 27 mmol/L (22-30) 06/19/19 05:45 Anion Gap 7 (5-19) 06/19/19 05:45 BUN 15 mg/dL (7-20) 06/19/19 05:45 Creatinine 0.96 mg/dL (0.52-1.25) 06/19/19 05:45 Est GFR ( Amer) > 60 (>60) 06/19/19 05:45 Est GFR (MDRD) Non-Af > 60 (>60) 06/19/19 05:45 Glucose 134 mg/dL (75-110) H 06/19/19 05:45 POC Glucose 145 mg/dL (70-110) H 06/19/19 07:50 Hemoglobin A1c % 9.4 % (4.7-6.0) H 06/19/19 05:45 Calcium 9.2 mg/dL (8.4-10.2) 06/19/19 05:45 Total Bilirubin 0.8 mg/dL (0.2-1.3) 06/18/19 10:50 Direct Bilirubin 0.0 mg/dL (0.0-0.4) 06/18/19 10:50 Neonat Total Bilirubin Not Reportable 06/18/19 10:50 Neonat Direct Bilirubin Not Reportable 06/18/19 10:50 Neonat Indirect Bili Not Reportable 06/18/19 10:50 AST 21 U/L (17-59) 06/18/19 10:50 ALT 22 U/L (<50) 06/18/19 10:50 Alkaline Phosphatase 173 U/L (38-126) H 06/18/19 10:50 Troponin I < 0.012 ng/mL 06/18/19 10:50 Total Protein 8.4 g/dL (6.3-8.2) H 06/18/19 10:50 Albumin 4.7 g/dL (3.5-5.0) 06/18/19 10:50 Triglycerides 145 mg/dL (<150) 06/19/19 05:45 Cholesterol 153.64 mg/dL (0-200) 06/19/19 05:45 LDL Cholesterol Direct 91 mg/dL (<100) 06/19/19 05:45 VLDL Cholesterol 29.0 mg/dL (10-31) 06/19/19 05:45 HDL Cholesterol 43 mg/dL (>40) 06/19/19 05:45 Urine Color YELLOW 06/18/19 12:40 Urine Appearance SLIGHTLY-CLOUDY 06/18/19 12:40 Urine pH 6.0 (5.0-9.0) 06/18/19 12:40 Ur Specific [place] 1.018 06/18/19 12:40 Urine Protein 100 mg/dL (NEGATIVE) H 06/18/19 12:40 Urine Glucose (UA) >=500 mg/dL (NEGATIVE) H 06/18/19 12:40 Urine Ketones 20 mg/dL (NEGATIVE) H 06/18/19 12:40 Urine Blood NEGATIVE (NEGATIVE) 06/18/19 12:40 Urine Nitrite NEGATIVE (NEGATIVE) 06/18/19 12:40 Urine Bilirubin NEGATIVE (NEGATIVE) 06/18/19 12:40 Urine Urobilinogen 2.0 mg/dL (<2.0) H 06/18/19 12:40 Ur Leukocyte Esterase TRACE (NEGATIVE) H 06/18/19 12:40 Urine WBC (Auto) 11 /HPF 06/18/19 12:40 Urine RBC (Auto) 2 /HPF 06/18/19 12:40 Squamous Epi Cells Auto 3 /HPF 06/18/19 12:40 Urine Mucus (Auto) MANY /LPF 06/18/19 12:40 Urine Ascorbic Acid NEGATIVE (NEGATIVE) 06/18/19 12:40 06/18/19 10:50 Troponin I < 0.012 Impressions: Brain MRI with MRA 06/18/19 00:00 IMPRESSION: No aneurysm, occlusion or high-grade stenosis of the intracranial arterial vasculature. Carotid Doppler Study 06/18/19 00:00 IMPRESSION: NO HEMODYNAMICALLY SIGNIFICANT STENOSIS. Chest X-Ray 06/18/19 10:34 IMPRESSION: Low inspiratory lung volumes without a superimposed acute cardiopulmonary process. Head CT 06/18/19 10:34 IMPRESSION: Sequela of chronic ischemia without a superimposed acute intracranial abnormality. If there is persistent concern for an acute CVA then correlation with an MRI is recommended. EVIDENCE OF ACUTE STROKE: NO. Head MRI 06/18/19 11:39 IMPRESSION: 1. Acute punctate infarct within the right inferior cerebellar peduncle in the distribution of the posterior inferior cerebellar artery. 2. Sequela of chronic ischemia as detailed above. EVIDENCE OF ACUTE STROKE: YES. RIGHT PICA Plan Time Spent: Less than 30 Minutes Stroke Is this a Stroke Patient?: Yes Stroke Pt being discharged on Anti-thrombolytic therapy?: Yes Stroke Pt being discharged on Anti-coagulation therapy?: No Reason(s) for not prescribing Anti-coagulation therapy:: Not indicated Stroke Pt being discharged on Statins?: Yes Acute Heart Failure - Is this a Heart Failure Patient?: No
--- NOTE | 2019-06-19 11:57 | XCELERA REPORT ---
[address] [address] Transthoracic Echocardiogram Report Name: SISI HYMAN Age: 63 yrs Gender: Male : 1955 Patient Status: Inpatient Patient Location: [facility]^A Study Date: 06/18/2019 05:48 PM Height: 67 in Weight: 186 lb BSA: 2.0 m2 Reason For Study: cva work up Ordering Physician: ROBBY GONZALES Performed By: Jennifer Novak Interpretation Summary LEFT VENTRICLE: LV Systolic function: LVEF is felt to be within normal limits. Best estimate is approximately LVEF is 60 to 65%. LV Diastolic Function: Grade II diastolic dysfunction noted. Wall motion : No definite regional wall motion abnormalities are noted. Left ventricular chamber size : is within normal limit. Left ventricular wall thickness : is increased indicative of moderate LVH. RIGHT VENTRICLE: RV systolic function : is felt to be within normal limit. Right Ventricle Size : is within normal limits. LEFT ATRIUM size : is mildly dilated. RIGHT ATRIUM size : is within normal limit. INTER ATRIAL SEPTUM : No definite atrial septal defect noted however a small PFO could be missed. AORTIC ROOT : seems to be within normal limits. Ascending aorta is not well visualized. INFERIOR VENA CAVA: was not well visualized. VALVES: MITRAL VALVE : Leaflets are mildly thickened. Mobility seems to be within normal limits. Mitral Regurgitation : Trace mitral regurgitation is noted. Mitral Stenosis: No mitral stenosis noted. Mitral valve prolapse : none noted. AORTIC VALVE: seems to be trileaflet with mild thickening but adequate excursion. Aortic stenosis : No aortic stenosis noted. Aortic regurgitation : No aortic incompetence noted. TRICUSPID VALVE : mobility and structures within normal limit. Tricuspid stenosis : no tricuspid stenosis noted. Tricuspid regurgitation : Trace tricuspid regurgitation noted. Estimated RVSP : cannot be accurately commented upon but possibly at upper limit of normal. PULMONARY VALVE : was not well visualized but no significant abnormalities suspected. Pulmonary stenosis : no pulmonary stenosis noted. Pulmonary regurgitation : no significant pulmonary regurgitation noted. MASSES AND THROMBUS : No definite intracardiac thrombus or masses are noted. PERICARDIUM: No pericardial effusion was noted. IMPRESSION : 1. Normal LVEF. 2. Moderate LVH noted 3. Grade II [mild] Diastolic Dysfunction noted. 4. No significant valvular stenosis or regurgitation noted. 5. LA is mildly dilated. MMode/2D Measurements & Calculations RVDd: 2.9 cm LVIDd: 4.7 cm FS: 38.4 % Ao root diam: 3.3 cm IVSd: 1.8 cm LVIDs: 2.9 cm EDV(Teich): 104.7 ml LVPWd: 1.5 cm ESV(Teich): 32.9 ml Ao root area: 8.5 cm2 LA dimension: 3.3 cm EF(Teich): 68.6 % Doppler Measurements & Calculations MV E max steven: MV P1/2t max steven: Ao V2 max: LV V1 max P.7 cm/sec 100.1 cm/sec 164.4 cm/sec 6.2 mmHg MV A max steven: MV P1/2t: 69.2 msec Ao max PG: LV V1 max: 93.8 cm/sec MVA(P1/2t): 3.2 cm2 10.8 mmHg 124.6 cm/sec MV E/A: 0.83 MV dec slope: 423.4 cm/sec2 MV dec time: 0.26 sec PA V2 max: PI end-d steven: MV P1/2t-pr_phl: 80.5 cm/sec 129.1 cm/sec 69.2 msec PA max P.6 mmHg : ROBBY GONZALES Shyamal
[2019-06-19 12:39] VITALS: BP 172/78
== END 2019-06-19 14:00 | disposition home or self-care (01) ==
LOC: ER 09:32 → EH 14:32 → INTOOBSV 14:32 → 3W 16:10
PROVIDERS: ADMIT Internal Medicine; ATTEND Internal Medicine
DX: I63.9 Cerebral infarction, unspecified (principal); I10 Essential (primary) hypertension; E11.9 Type 2 diabetes mellitus without complications; I69.351 Hemiplegia and hemiparesis following cerebral infarction affecting right dominant side; R11.0 Nausea; F17.200 Nicotine dependence, unspecified, uncomplicated; Z79.899 Other long term (current) drug therapy; Z79.84 Long term (current) use of oral hypoglycemic drugs; Z82.49 Family history of ischemic heart disease and other diseases of the circulatory system; Z91.14 Patient's other noncompliance with medication regimen; R29.702 NIHSS score 2
CPT/HCPCS: 93005 ×2; 99285; 36415 ×2; 82962 ×2; 85025; 85027; 85610; 85730; 80048; 80053; 81001; 84484; 83036; 80061; 93306; 93880; 70551; 70544; 71045; 70450; 93010 ×2; 97530; 97162; 97535; 97166; G0378 ×3; J1650; J3490 ×6